=== PATIENT | male | born 1955 | race Caucasian/White ===

== ENCOUNTER 2018-12-28 10:02 | Emergency (ER) | payer OTHER ==
[2018-12-28] MEDS ORDERED: KETOROLAC 30 MG INJ IM (10:29)
[2018-12-28] MEDS ORDERED: DEXAMETHASONE 10 MG/ML 1 ML INJ IM (10:30)
[2018-12-28] MEDS: DIAZEPAM 5 MG TAB PO (10:59)
[2018-12-28] MEDS: DEXAMETHASONE 10 MG/ML 1 ML INJ IM (11:01)
[2018-12-28] MEDS: KETOROLAC 60 MG INJ IM (11:01)
== END 2018-12-28 11:23 | disposition home or self-care (01) ==
LOC: FTE 10:02
DX: M54.40 Lumbago with sciatica, unspecified side (principal)
CPT/HCPCS: 96372; 99284-25; J1100